=== PATIENT | female | born 1990 | race Caucasian/White ===

== ENCOUNTER → 2020-01-19 | Outpatient (CLI) | payer OTHER ==
[2020-01-22 05:10] LABS: CHLAMYDIA TRACHOMATIS, NAA Negative (Negative); NEISSERIA GONORRHOEAE, NAA Negative (Negative)
== END ==
LOC: LAB UCHC 11:40 → LAB SHORT 11:40
PROVIDERS: Registered Nurse Community Health
DX: Z34.91 Encounter for supervision of normal pregnancy, unspecified, first trimester (principal)
CPT/HCPCS: 87491; 87591

== ENCOUNTER 2020-07-20 13:40 | Inpatient (IN) | payer OTHER ==
[~2020-07-20] VITALS: Ht 170.2 cm; Wt 172.0 kg
[2020-07-20] MEDS ORDERED: GLYBURIDE5 M1 (14:49)
[2020-07-20] MEDS ORDERED: MONT10T PO (14:50)
[2020-07-20] MEDS ORDERED: Cetirizine HCl10 MG (14:50)
[2020-07-20 15:09] LABS: BASOPHILS ABSOLUTE AUTO 0.03 K/mm3 (0.00-0.23); BASOPHILS PERCENT AUTO 0 % (0-2); EOSINOPHILS ABSOLUTE AUTO 0.09 K/mm3 (0.00-0.68); EOSINOPHILS PERCENT AUTO 1 % (0-6); Hematocrit 40.3 % (33.0-51.0); Hemoglobin 13.1 g/dL (11.5-16.0); IMMATURE GRAN ABSOLUTE AUTO 0.07 K/mm3 (0.00-0.10); IMMATURE GRAN PERCENT AUTO 1 % (0-1); LYMPHOCYTES ABSOLUTE AUTO 2.44 K/mm3 (0.84-5.20); LYMPHOCYTES PERCENT AUTO 22 % (21-46); MONOCYTES ABSOLUTE AUTO 0.58 K/mm3 (0.16-1.47); MONOCYTES PERCENT AUTO 5 % (4-13); Mean Corpuscular HGB Conc 32.5 g/dL (31.5-36.5); Mean Corpuscular Volume 89 fL (80-100); Mean Platelet Volume 9.4 fL (9.1-12.4); NEUTROPHILS PERCENT AUTO 72 % (41-73); Platelet Count 347 K/mm3 (150-400); RDW Coefficient Variation 13.8 % (11.7-14.2); Red Blood Cell Count 4.52 M/mm3 (3.80-5.20); White Blood Cell Count 11.31 K/mm3 (4.00-11.30)
[2020-07-20 16:28] LABS: Influenza A, PCR Negative (NEGATIVE); Influenza B, PCR Negative (NEGATIVE); Resp Syncytial Virus, PCR Negative (NEGATIVE); SARS-Cov-2 (COVID-19) PCR, MMC Negative (NEGATIVE)
[2020-07-20 17:18] LABS: Alanine Aminotransfer (ALT/SGP 22 U/L (12-78); Albumin, Blood 2.2 g/dL (3.4-5.0); Albumin/Globulin Ratio 0.5 (0.8-1.8); Alk Phos 143 U/L (50-136); Anion Gap 9 mmol/L (6-16); Aspartate Aminotrans (AST/SGOT 19 U/L (12-37); Bilirubin, Total 0.2 mg/dL (0.1-1.0); Blood Urea Nitrogen 21 mg/dL (8-24); CO2, Blood 20 mmol/L (21-32); Calcium, Blood 9.2 mg/dL (8.5-10.1); Chloride, Blood 111 mmol/L (98-108); Creatinine, Blood 0.87 mg/dL (0.40-1.00); Globulin, Blood 4.3 g/dL (2.2-4.0); Glomerular Filtration Rate >60 (60-); Glucose, Blood 134 mg/dL (70-99); Potassium, Blood 4.3 mmol/L (3.5-5.5); Sodium, Blood 140 mmol/L (136-145); Total Protein, Blood 6.5 g/dL (6.4-8.2)
--- NOTE | 2020-07-20 20:40 | NUR ---
07/20/202039 Michel Chino 2034 BABY GIRL BORN CORD BLOOD SENT WITH GRACE POWER RN. CORD SEGMENT SENT ON ICE WITH RT GILMAN.
[2020-07-20 20:49] LABS: PCO2 Cord - Arterial 85.1 mmHg (40-50); PO2 Cord - Arterial < 13 mmHg (16-20); pH Cord - Arterial 7.08 (7.28-7.35)
[2020-07-20 20:51] LABS: PCO2 Cord - Venous 66.7 mmHg (40-50); PO2 Cord - Venous 16.9 mmHg (28-32); pH Umbilical Cord - Venous 7.16 (7.26-7.35)
--- NOTE | 2020-07-21 01:35 | NUR ---
MATERNAL CBG TAKEN IN PACU, 69. PT GIVEN FOOD (PEANUT BUTTER, CRACKERS, SANDWICH,CHEESE). PT HANDLING SOLID FOOD WELL. NO N/V PER PT
--- NOTE | 2020-07-21 01:37 | NUR ---
MATERNAL CBG RE TAKEN IN RM 131 AFTER EATING, 144.
[2020-07-21 05:31] LABS: BASOPHILS ABSOLUTE AUTO 0.03 K/mm3 (0.00-0.23); BASOPHILS PERCENT AUTO 0 % (0-2); EOSINOPHILS ABSOLUTE AUTO 0.07 K/mm3 (0.00-0.68); EOSINOPHILS PERCENT AUTO 1 % (0-6); Hemoglobin 11.8 g/dL (11.5-16.0); IMMATURE GRAN ABSOLUTE AUTO 0.06 K/mm3 (0.00-0.10); IMMATURE GRAN PERCENT AUTO 0 % (0-1); LYMPHOCYTES ABSOLUTE AUTO 3.04 K/mm3 (0.84-5.20); LYMPHOCYTES PERCENT AUTO 22 % (21-46); MONOCYTES PERCENT AUTO 6 % (4-13); Mean Corpuscular HGB 28.5 pg (26.0-34.0); Mean Corpuscular HGB Conc 31.9 g/dL (31.5-36.5); Mean Corpuscular Volume 89 fL (80-100); Mean Platelet Volume 9.3 fL (9.1-12.4); NEUTROPHILS ABSOLUTE AUTO 10.12 K/mm3 (1.96-9.15); NEUTROPHILS PERCENT AUTO 72 % (41-73); Platelet Count 314 K/mm3 (150-400); RDW Coefficient Variation 13.7 % (11.7-14.2); RDW Standard Deviation 44.6 fL (35.1-46.3); Red Blood Cell Count 4.14 M/mm3 (3.80-5.20); White Blood Cell Count 14.12 K/mm3 (4.00-11.30)
--- NOTE | 2020-07-21 09:58 | NUR ---
RN/LC ROUNDED TO HELP W/ . NB IS IN SCN. INSTRUCTED PT IN CORRECT PUMP SETTINGS AND FREQUENCEY. INSTRUCT/DEMO HAND EXPRESSION OF COLOSTRUM. PT VERBALIZED UNDERSTANDING. DENIES ANY FURTHER QUESTIONS OR CONCERNS.
--- NOTE | 2020-07-21 15:11 | NUR ---
Pt up to br for first void after barnett d/c'd. Able to void w/o difficulty. Ambultated to br independently. Denies other needs at this time.
--- NOTE | 2020-07-23 16:52 | NUR ---
PROVIDER UPDATE JEOVANNY NOTIFIED OF TRENDING HR RANGING FROM 104-120 BPM WITH RECENT BP OF 140/87. PT ASYMPTOMATIC, DENIES ANY CP OR SOB. PT ENCOURAGED TO REST WHEN NB RESTS. LIGHTS IN ROOM DIMMED AND ELECTRONICS TURNED OFF. PT REPORTS "CAT NAPPING FOR ABOUT 30MINS." NO NEW ORDERS FROM PROVIDER AT THIS TIME. WILL CONT TO MONITOR.
[2020-07-24] MEDS ORDERED: Oxycodone-Apap1 EA14 PO (15:01)
[2020-07-24] MEDS ORDERED: IBUP800 PO (15:02)
[2020-07-24] MEDS ORDERED: METF500 PO (15:04)
--- NOTE | 2020-07-24 15:41 | NUR ---
DISCHARGE SUMMARY PT CHANGED TO BOARDER STATUS AT 1530 TODAY. DISCHARGE INSTRUCTIONS AND SCRIPTS PROVIDED TO PT PRIOR TO STATUS CHANGE. PT REPORTS PAIN MANAGED WITH PO MEDICATIONS AND REST. PT VERBALIZED UNDERSTANDING OF INSTRUCTIONS AND DENIED ANY CONCERNS AT THIS TIME.
== END 2020-07-24 15:30 | disposition home or self-care (01) | DRG 788 ==
LOC: OBS 13:40 → BC 13:45 → OBS 14:29 → BC 14:31
PROVIDERS: Obstetrics & Gynecology; ADMIT Registered Nurse Community Health
PROC: 10D00Z1 Extraction of Products of Conception, Low, Open Approach (ICD-10-PCS; principal; 2020-07-20 16:45)
DX: O32.1XX0 Maternal care for breech presentation, not applicable or unspecified (principal); O36.63X0 Maternal care for excessive fetal growth, third trimester, not applicable or unspecified; Z3A.36 36 weeks gestation of pregnancy; Z37.0 Single live birth; O14.94 Unspecified pre-eclampsia, complicating childbirth; O24.425 Gestational diabetes mellitus in childbirth, controlled by oral hypoglycemic drugs; Z20.822 Contact with and (suspected) exposure to COVID-19
CPT/HCPCS: 0241U; 36415; 76815; 80053; 82803; 82947; 85025; 86850; 86900; 86901; A9270; J0690; J1885; J2001; J2250; J2590; J2765; J3010; J7120

== ENCOUNTER → 2021-12-29 | Outpatient (CLI) | payer OTHER ==
[~2021-12-29] MED LIST: Cetirizine HCl10 MG; GLYBURIDE5 M1; IBUP800 PO; METF500 PO; MONT10T PO; Oxycodone-Apap1 EA14 PO
[2022-01-04 11:11] LABS: HPV 16 Negative (Negative); HPV 18 Negative (Negative); HPV OTHER HR TYPES Positive (Negative)
== END ==
LOC: LAB SHORT 17:25 → LAB 17:25
PROVIDERS: Family Medicine
DX: Z01.419 Encounter for gynecological examination (general) (routine) without abnormal findings (principal)
CPT/HCPCS: 87624; 87625; G0145

== ENCOUNTER 2022-10-31 09:24 | Day surgery (SDC) | payer OTHER ==
[~2022-10-31] VITALS: Ht 170.2 cm; Wt 151.3 kg
[2022-10-31] MEDS ORDERED: MONT10T (10:19)
[2022-10-31] MEDS ORDERED: ZYRTEC10 M2 PO (10:19)
[2022-10-31] MEDS ORDERED: Prozac40 MG PO (10:19)
[2022-10-31] MEDS ORDERED: ALDACTONE100 MG PO (10:20)
--- NOTE | 2022-10-31 11:23 | NUR ---
10/31/22 1123 Albina Carr COMPLETE IN OR BY DR MORAES. SITE CHECK DONE, PT TOW. VSS.
[2022-10-31 12:16] VITALS: BP 153/70
== END 2022-10-31 12:10 | disposition home or self-care (01) ==
LOC: ORSCSDS 09:24
PROVIDERS: Orthopaedic Surgery
PROC: 01N50ZZ Release Median Nerve, Open Approach (ICD-10-PCS; principal; 2022-10-31 11:00)
DX: G56.01 Carpal tunnel syndrome, right upper limb (principal); E11.9 Type 2 diabetes mellitus without complications; F41.9 Anxiety disorder, unspecified; F32.A Depression, unspecified; Z79.84 Long term (current) use of oral hypoglycemic drugs; Z79.899 Other long term (current) drug therapy
CPT/HCPCS: 82947; J2250; J3010; J7120

== ENCOUNTER 2022-12-01 12:43 | Inpatient (IN) | payer OTHER ==
[~2022-12-01] VITALS: Ht 170.2 cm; Wt 151.9 kg
[~2022-12-01 12:43] MED LIST changes: +ALDACTONE100 MG PO; +MONT10T; +Prozac40 MG PO; +ZYRTEC10 M2 PO
[2022-12-01] MEDS ORDERED: FUROSEMIDE20 MG PO (17:35)
[2022-12-01] MEDS ORDERED: FLUT.05NI (17:42)
[2022-12-01] MEDS ORDERED: PROZAC40 MG PO (17:42)
[2022-12-01] MEDS ORDERED: TRAM50 PO (17:42)
--- NOTE | 2022-12-01 18:26 | NUR ---
SHIFT SUMMARY PT ARRIVED TO THE FLOOR AT 1736 FROM THE ED. PT WAS ORIENTED TO THE ROOM AND THE USE OF THE CALL LIGHT. TELEMETRY WAS APPLIED AND ADMIT INFORMATION DOCUMENTED. PT TO GO NPO AT MIDNIGHT, PENDING A CARDIOLOGY CONSULT IN THE AM. PT HAS HAD NO C/O CP/PRESSURE/SOB SINCE ARRIVAL TO THE FLOOR. WILL REPORT TO ONCOMING NURSE.
[2022-12-01 18:31] LABS: Anti-Xa UFH, PHA Monitoring <0.10 IU/mL; International Normalized Ratio 0.98; Prothrombin Time Results 10.3 Sec (9.7-11.5)
--- NOTE | 2022-12-01 18:37 | NUR ---
CRITICAL LAB VALUE NOTIFIED BY LAB OF A TROPONIN LEVEL OF 3134. THE PROVIDER, DR. MARQUEZ, NOTIFIED AND ORDERED ANOTHER TROPONIN LEVEL FOR THE AM. WILL REPORT TO ONCOMING NURSE.
[2022-12-01 20:01] VITALS: BP 151/90
[2022-12-02] VITALS (12 sets, daily range): BP systolic 94–152; BP diastolic 76–93
[2022-12-02 05:40] LABS: BASOPHILS ABSOLUTE AUTO 0.05 K/mm3 (0.00-0.23); BASOPHILS PERCENT AUTO 0 % (0-2); EOSINOPHILS ABSOLUTE AUTO 0.28 K/mm3 (0.00-0.68); EOSINOPHILS PERCENT AUTO 2 % (0-6); Hematocrit 40.5 % (33.0-51.0); Hemoglobin 13.6 g/dL (11.5-16.0); IMMATURE GRAN ABSOLUTE AUTO 0.08 K/mm3 (0.00-0.10); IMMATURE GRAN PERCENT AUTO 1 % (0-1); LYMPHOCYTES ABSOLUTE AUTO 4.32 K/mm3 (0.84-5.20); LYMPHOCYTES PERCENT AUTO 35 % (21-46); MONOCYTES ABSOLUTE AUTO 0.77 K/mm3 (0.16-1.47); MONOCYTES PERCENT AUTO 6 % (4-13); Mean Corpuscular HGB 31.6 pg (26.0-34.0); Mean Corpuscular HGB Conc 33.6 g/dL (31.5-36.5); Mean Corpuscular Volume 94 fL (80-100); Mean Platelet Volume 8.8 fL (9.1-12.4); NEUTROPHILS ABSOLUTE AUTO 6.79 K/mm3 (1.96-9.15); NEUTROPHILS PERCENT AUTO 55 % (41-73); Platelet Count 303 K/mm3 (150-400); RDW Coefficient Variation 11.9 % (11.7-14.2); RDW Standard Deviation 41.9 fL (35.1-46.3); Red Blood Cell Count 4.31 M/mm3 (3.80-5.20); White Blood Cell Count 12.29 K/mm3 (4.00-11.30)
--- NOTE | 2022-12-02 05:52 | NUR ---
PATIENT REMAINS ALERT AND ORIENTED X4, IND IN ROOM, CALLS TO MAKE NEEDS KNOW. NO CHEST PAIN, OR OTHER COMPLAINTS THROUGHOUT THE NIGHT. PIV INFUSING HEP DRIP, AND 2ND SITE INFUSING NS AT 125 STARTED AT 0500 PER ORDER. PATIENT HAD BEEN KEPT NPO SINCE 0000, FOR MORNING ECHO AND CATH. SOME HTN, BUT OTHERWISE VSS. WILL CONTINUE TO MONITOR.
[2022-12-02 06:08] LABS: Albumin, Blood 3.1 g/dL (3.4-5.0); Albumin/Globulin Ratio 0.9 (0.8-1.8); Bilirubin, Total 0.8 mg/dL (0.1-1.0); Bun/Creatinine Ratio 15.6 (12.0-20.0); Calcium, Blood 8.5 mg/dL (8.5-10.1); Creatinine, Blood 0.58 mg/dL (0.40-1.00); Globulin, Blood 3.5 g/dL (2.2-4.0); Magnesium, Blood 2.1 mg/dL (1.6-2.4); Potassium, Blood 3.5 mmol/L (3.5-5.5); Total Protein, Blood 6.6 g/dL (6.4-8.2)
--- NOTE | 2022-12-02 09:03 | NUR ---
NURSE NOTE THIS NURSE AGREES WITH STUDENT NURSE SHIFT ASSESSMENT
--- NOTE | 2022-12-02 11:28 | NUR ---
TRANSFER TO PCU: PT TAKEN BY OR STAFF FOR ECHO AND POSSIBLE CARDIAC LAB FOR PROCEDURE(S). PT TRANFERED VIA GURNEY WITH IV HEPARIN RUNNING ORDERED. PT DENIES SOB AND PAIN. VSS. PT BELONGINGS TAKEN TO PCU BY MED FLOOR STAFF.
--- NOTE | 2022-12-02 11:58 | NUR ---
TRANSFER NOTE: PT TO PCU 9 FOLLOWING ECHO STUDY. REPORT GIVEN TO АЛЕКСАНДР LINDA. PT BELONGINGS TAKEN TO PCU 9 BY MEDICAL FLOOR STAFF.
--- NOTE | 2022-12-02 12:18 | NUR ---
PATIENT RETURNS FROM [facility] [employer] AND TRANSFERRED TO PCU 09. ALERT AND ORIENTED X4. ON ROOM AIR SATING ABOVE 95%. LUNGS SOUNDING CLEAR AND DIMINISHED IN BASES. TELE SHOWING SR WITH HR 80'S. DENIES CHEST PAIN/PRESSURE/PALPITATIONS. BP STABLE. RIGHT RADIAL SITE WNL. WITH TR BAND AND ARM BOARD IN PLACE. PATIENT EDUCATED ON POST ANGIOGRAM RADIAL SITE PRECAUTIONS. EATING LUNCH AT THIS TIME. POST VITALS IN PROGRESS. NS INFUSING PER EMAR. PATIENT UPDATED FAMILY VIA PHONE. CALL LIGHT IN REACH.
--- NOTE | 2022-12-02 15:56 | NUR ---
TR BAND REMOVED AT 1520. SITE WNL. PATIENT EDUCATED ON POST RADIAL PRECAUTIONS. WRITTEN INSTRUCTIONS PROVIDED WELL. NS TO BE STOPPED AT 1600. DR. RM AT BEDSIDE TO DISCUSS ANGIOGRAM WITH PATIENT. PLAN FOR DISCHARGE TONIGHT.
[2022-12-02] MEDS ORDERED: ASPI81CH PO (16:54)
[2022-12-02] MEDS ORDERED: CLOP75 PO (16:55)
[2022-12-02] MEDS ORDERED: ATOR40TA PO (16:55)
[2022-12-02] MEDS ORDERED: METO25ER PO (17:06)
--- NOTE | 2022-12-02 17:36 | NUR ---
DISCHARGE: NO ACUTE CHANGES. RIGHT RADIAL SITE FULLY RECOVERED AND WNL. ARM BOARD IN PLACE. RADIAL SITE PRECAUTIONS REVIEWED WITH PATIENT AND INSTRUCTIONS PRINTED OUT. DISCHARGE INSTRUCTIONS TAUGHT BY THIS RN INCLUDED NEW MEDICATIONS, MEDICATIONS TO STOP, FOLLOW UP APPOINTMENTS. SIGNS AND SYMPTOMS TO MONITOR FOR TR BAND. WHEN AND IF TO RETURN TO EMERGENCY ROOM. PATIENT ABLE TO VERBALIZE ALL INFORMATION BACK TO THIS RN. PRESCRIPTIONS FAXED TO [facility]. PATIENT LEFT UNIT WITH ALL PERSONAL BELONGINGS. IV'S REMOVED WNL.
== END 2022-12-02 17:44 | disposition home or self-care (01) | DRG 287 ==
LOC: ER 12:43 → MEDS 15:33 → PCU 12-02 11:25
PROVIDERS: ADMIT Internal Medicine
PROC: 4A023N7 Measurement of Cardiac Sampling and Pressure, Left Heart, Percutaneous Approach (ICD-10-PCS; principal; 2022-12-02)
PROC: B2111ZZ Fluoroscopy of Multiple Coronary Arteries using Low Osmolar Contrast (ICD-10-PCS; 2022-12-02)
PROC: B2151ZZ Fluoroscopy of Left Heart using Low Osmolar Contrast (ICD-10-PCS; 2022-12-02)
DX: R07.89 Other chest pain (principal); Z68.43 Body mass index [BMI] 50.0-59.9, adult; E66.01 Morbid (severe) obesity due to excess calories; E11.9 Type 2 diabetes mellitus without complications; E28.2 Polycystic ovarian syndrome; F41.3 Other mixed anxiety disorders; I10 Essential (primary) hypertension; Z90.89 Acquired absence of other organs; Z90.721 Acquired absence of ovaries, unilateral; Z87.39 Personal history of other diseases of the musculoskeletal system and connective tissue; Z90.5 Acquired absence of kidney; Z90.6 Acquired absence of other parts of urinary tract; Z79.84 Long term (current) use of oral hypoglycemic drugs; Z79.899 Other long term (current) drug therapy
CPT/HCPCS: 36415; 71046; 71260; 76937; 80053; 81025; 83735; 83880; 84484; 85025; 85520; 85610; 85730; 93005; 93010; 93306; 93458; 96374; 99152; 99153; 99285-25; A9270; C1769; C1887; C1894; J1644; J2250; J3010; J7030; J7050; Q9967

== ENCOUNTER → 2023-01-16 | Outpatient (CLI) | payer OTHER ==
[~2023-01-16] MED LIST changes: +ASPI81CH PO; +ATOR40TA PO; +CLOP75 PO; +FLUT.05NI; +FUROSEMIDE20 MG PO; +METO25ER PO; +PROZAC40 MG PO; +TRAM50 PO
== END | disposition home or self-care (01) ==
LOC: LAB 09:50 → LAB SHORT 09:50
DX: N39.0 Urinary tract infection, site not specified (principal)
CPT/HCPCS: 87086

== ENCOUNTER → 2023-02-08 | Outpatient (CLI) | payer OTHER ==
[2023-02-09 10:54] LABS: Candida species (DNA Probe) Negative (NEGATIVE); G. vaginalis (DNA Probe) Negative (NEGATIVE); T. vaginalis (DNA Probe) Positive (NEGATIVE)
== END | disposition home or self-care (01) ==
LOC: LAB SHORT 18:23
PROVIDERS: Physician Assistant
DX: Z01.419 Encounter for gynecological examination (general) (routine) without abnormal findings (principal); Z11.3 Encounter for screening for infections with a predominantly sexual mode of transmission
CPT/HCPCS: 87480; 87510; 87660

== ENCOUNTER → 2023-05-06 | Outpatient (CLI) | payer OTHER | LOC: LAB 08:39 → PLD 08:39 → LAB SHORT 08:39 | DX: N87.0 Mild cervical dysplasia (principal) | CPT/HCPCS: 88305; 88342 ==

== ENCOUNTER 2024-01-06 11:04 | Emergency (ER) | payer OTHER ==
[~2024-01-06] VITALS: Ht 170.2 cm; Wt 129.3 kg
[2024-01-06 11:10] VITALS: BP 150/88
== END 2024-01-06 11:19 | disposition home or self-care (01) ==
LOC: ER 11:04
DX: M54.2 Cervicalgia (principal); M54.50 Low back pain, unspecified; V49.9XXA Car occupant (driver) (passenger) injured in unspecified traffic accident, initial encounter; Z79.82 Long term (current) use of aspirin; Z79.02 Long term (current) use of antithrombotics/antiplatelets; Z79.51 Long term (current) use of inhaled steroids; Z79.899 Other long term (current) drug therapy
CPT/HCPCS: 99283